=== PATIENT | female | born 1955 | race Two or more races ===

== ENCOUNTER 2021-08-01 15:29 | Emergency (ER) | payer OTHER ==
[~2021-08-01] VITALS: Ht 152.4 cm; Wt 53.0 kg
[2021-08-01] MEDS ORDERED: ALEN10TA5 PO (15:55)
[2021-08-01] MEDS ORDERED: [UNRECOGNIZED DRUG - OTHER] (15:55)
[2021-08-01] MEDS ORDERED: ZETI10TA16 PO (15:55)
[2021-08-01] MEDS ORDERED: ATOR40TA75 PO ×2 (15:55→18:38)
[2021-08-01] MEDS ORDERED: VITA200048 PO (15:55)
[2021-08-01 16:15] LABS: BASO % 0.6 % (0.0-1.0); EOS # 0.1 10^3/uL (0.0-0.5); EOS % 1.8 % (0.0-3.0); HEMATOCRIT 44.4 % (36.0-47.0); HEMOGLOBIN 14.6 g/dl (12.0-15.5); LYMPH # 1.5 10^3/uL (1.5-5.0); LYMPH % 29.7 % (24.0-44.0); MEAN CORPUSCULAR HEMOGLOBIN 30.9 pg (27.0-33.0); MEAN CORPUSCULAR HGB CONC 32.9 g/dl (32.0-36.5); MEAN CORPUSCULAR VOLUME 93.9 fl (80.0-96.0); MONO # 0.3 10^3/uL (0.0-0.8); MONO % 6.2 % (2.0-8.0); NEUTROPHILS # 3.1 10^3/uL (1.5-8.5); NEUTROPHILS % 61.5 % (36.0-66.0); PLATELET COUNT, AUTOMATED 218 10^3/uL (150-450); RED BLOOD COUNT 4.73 10^6/uL (4.00-5.40)
[2021-08-01 16:38] LABS: CK-MB VALUE MASS 2.8 NG/ML (<3.6); MB/CK RELATIVE INDEX 1.44 (< OR =4)
[2021-08-01 16:57] LABS: ALBUMIN 3.8 GM/DL (3.2-5.2); ALT/SGPT 38 U/L (12-78); BILIRUBIN,DIRECT 0.1 MG/DL (0.0-0.2); BILIRUBIN,TOTAL 0.2 MG/DL (0.2-1.0); BLOOD UREA NITROGEN 20 MG/DL (7-18); CALCIUM LEVEL 8.5 MG/DL (8.8-10.2); CARBON DIOXIDE LEVEL 28 MEQ/L (21-32); CHLORIDE LEVEL 108 MEQ/L (98-107); CREATININE FOR GFR 0.69 MG/DL (0.55-1.30); FREE T4 0.95 NG/DL (0.76-1.46); GLOMERULAR FILTRATION RATE > 60.0 (>45); GLUCOSE, FASTING 114 MG/DL (70-100); LIPASE 198 U/L (73-393); POTASSIUM SERUM 3.8 MEQ/L (3.5-5.1); SODIUM LEVEL 142 MEQ/L (136-145); TOTAL PROTEIN 7.5 GM/DL (6.4-8.2)
[2021-08-01] MEDS ORDERED: ISOVUE-370 76% 100ML VIAL As Ordered ONE (17:06)
[2021-08-01 18:04] LABS: MB/CK RELATIVE INDEX 0.91 (< OR =4)
[2021-08-01] MEDS ORDERED: OMEP40CA4 PO (18:25)
[2021-08-01] MEDS ORDERED: SUCR1TA PO (18:25)
[2021-08-01 19:06] VITALS: BP 138/73
== END 2021-08-01 19:07 | disposition home or self-care (01) ==
LOC: M ED 15:29
DX: R07.89 Other chest pain (principal); R91.8 Other nonspecific abnormal finding of lung field; R00.1 Bradycardia, unspecified; I51.7 Cardiomegaly; I70.0 Atherosclerosis of aorta; E78.5 Hyperlipidemia, unspecified; G43.909 Migraine, unspecified, not intractable, without status migrainosus; Z79.899 Other long term (current) drug therapy
CPT/HCPCS: 36415; 71045; 71275; 80048; 80076; 82550; 82553; 83690; 84439; 84443; 84484; 85025; 93005; 93041; 94760; 99285; Q9967

== ENCOUNTER 2021-11-10 13:16 | Outpatient (RCR) | payer MEDICARE, OTHER ==
[~2021-11-10 13:16] MED LIST: ALEN10TA5 PO; ATOR40TA75 PO; OMEP40CA4 PO; SUCR1TA PO; VITA200048 PO; ZETI10TA16 PO; [UNRECOGNIZED DRUG - OTHER]
== END 2021-11-17 ==
LOC: M PT 13:16
PROVIDERS: ATTEND Physician Assistant
DX: M54.31 Sciatica, right side (principal)

== ENCOUNTER 2021-12-15 13:10 | Outpatient (RCR) | payer MEDICARE, OTHER | END 2021-12-17 | LOC: M PT 13:10 | PROVIDERS: ATTEND Physician Assistant | DX: M54.31 Sciatica, right side (principal) | CPT/HCPCS: 97110; 97140; G0283 ==

== ENCOUNTER 2022-01-12 13:18 | Outpatient (RCR) | payer MEDICARE, OTHER | END 2022-01-17 | LOC: M PT 13:18 | PROVIDERS: ATTEND Physician Assistant | DX: M54.31 Sciatica, right side (principal) ==

== ENCOUNTER 2022-02-08 12:00 | Outpatient (RCR) | payer MEDICARE, OTHER | END 2022-02-17 | LOC: M PT 12:00 | PROVIDERS: ATTEND Physician Assistant | DX: M54.31 Sciatica, right side (principal) ==

== ENCOUNTER → 2022-02-17 | Outpatient (CLI) | payer MEDICARE, OTHER | LOC: M WHC 07:55 | PROVIDERS: ATTEND Physician Assistant | DX: Z12.31 Encounter for screening mammogram for malignant neoplasm of breast (principal) ==

== ENCOUNTER 2023-02-28 09:46 | Emergency (ER) | payer MEDICARE, OTHER ==
[~2023-02-28] VITALS: Ht 154.9 cm; Wt 57.2 kg
[~2023-02-28 09:46] MED LIST changes: +EZET10TA58 PO; -ZETI10TA16 PO
[2023-02-28 09:47] VITALS: TEMP 97.6; O2SAT 99
[2023-02-28] MEDS ORDERED: SUCRALFATE 1 GM TAB PO ONE (12:10)
[2023-02-28] MEDS ORDERED: ACETAMINOPHEN *IV* 1,000 MG in IV 1 EA IV ONE (12:10)
[2023-02-28] MEDS ORDERED: MAALOX 30 ML SUSP *UDC PO ONE (12:10)
[2023-02-28] MEDS ORDERED: NS 1,000 ML IV ONE (12:10)
[2023-02-28] MEDS ORDERED: HYOSCYAMINE SULFATE 0.125 MG SUBL TABLET PO ONE (12:10)
[2023-02-28] MEDS ORDERED: PANTOPRAZOLE 40MG VIAL IV ONE (12:10)
[2023-02-28 12:57] LABS: BASO % 0.6 % (0.0-1.0); EOS # 0.1 10^3/uL (0.0-0.5); EOS % 1.5 % (0.0-3.0); HEMATOCRIT 43.1 % (36.0-47.0); HEMOGLOBIN 14.1 g/dl (12.0-15.5); LYMPH # 1.2 10^3/uL (1.5-5.0); LYMPH % 25.2 % (24.0-44.0); MEAN CORPUSCULAR HEMOGLOBIN 30.9 pg (27.0-33.0); MEAN CORPUSCULAR HGB CONC 32.7 g/dl (32.0-36.5); MEAN CORPUSCULAR VOLUME 94.3 fl (80.0-96.0); MONO # 0.4 10^3/uL (0.0-0.8); MONO % 7.9 % (2.0-8.0); NEUTROPHILS # 3.1 10^3/uL (1.5-8.5); NEUTROPHILS % 64.6 % (36.0-66.0); PLATELET COUNT, AUTOMATED 218 10^3/uL (150-450); RED BLOOD COUNT 4.57 10^6/uL (4.00-5.40); WHITE BLOOD COUNT 4.8 10^3/uL (4.0-10.0)
[2023-02-28 13:12] LABS: INR 1.02; PROTHROMBIN TIME 13.1 SECONDS (12.5-14.5)
[2023-02-28 13:13] LABS: PARTIAL THROMBOPLASTIN TIME 28.7 SECONDS (24.8-34.2)
[2023-02-28 13:15] LABS: D-DIMER QUANT < 0.27 ug/mL (<0.5)
[2023-02-28 13:20] LABS: ERYTHROCYTE SEDIMENTATION RATE 21 mm/hr (0-30)
[2023-02-28 13:21] LABS: LIPASE 37 U/L (12-53)
[2023-02-28 13:24] LABS: ALBUMIN 3.8 G/DL (3.2-5.2); ALKALINE PHOSPHATASE 61 U/L (46-116); ALT/SGPT 36 U/L (7.0-40); AST/SGOT 32 U/L (<34); BILIRUBIN,DIRECT 0.3 MG/DL (<0.4); BILIRUBIN,TOTAL 0.9 MG/DL (0.3-1.2)
[2023-02-28] MEDS ORDERED: dexAMETHasone 20MG/5ML VIAL IV ONE (13:45)
[2023-02-28] MEDS ORDERED: ISOVUE-370 76% 100ML VIAL As Ordered ONE (13:51)
[2023-02-28 14:34] LABS: CPK CREATINE PHOSPHOKINASE 219 U/L (34-145); MB/CK RELATIVE INDEX 1.36 (< OR =4)
[2023-02-28 15:56] LABS: CK-MB VALUE MASS 2.4 NG/ML (<3.6)
[2023-02-28 15:59] LABS: MB/CK RELATIVE INDEX 1.18 (< OR =4)
[2023-02-28 16:16] VITALS: BP 130/69
[2023-02-28] MEDS ORDERED: CARA1TAB6 PO (16:25)
[2023-02-28] MEDS ORDERED: OMEP20TA17 PO (16:25)
[2023-02-28 21:52] LABS: C REACTIVE PROTEIN QUANTITATIV < 0.40 MG/DL (<1.0)
== END 2023-02-28 16:35 | disposition home or self-care (01) ==
LOC: M ED 09:46
DX: R07.9 Chest pain, unspecified (principal); R10.13 Epigastric pain; R51.9 Headache, unspecified; I25.2 Old myocardial infarction; E78.5 Hyperlipidemia, unspecified; Z79.02 Long term (current) use of antithrombotics/antiplatelets; Z79.810 Long term (current) use of selective estrogen receptor modulators (SERMs); Z79.899 Other long term (current) drug therapy
CPT/HCPCS: 70450; 70496; 70498; 71045; 80047; 80076; 82550; 82553; 83690; 84484; 85025; 85379; 85610; 85652; 85730; 86140; 93005; 93041; 94760; 96374; 96375; 99285; C9113; J0131; J1100; Q9967

== ENCOUNTER → 2023-03-02 | Outpatient (CLI) | payer MEDICARE, OTHER ==
[~2023-03-02] MED LIST changes: +CARA1TAB6 PO; +OMEP20TA17 PO
== END ==
LOC: M WHC 03-01 12:58
PROVIDERS: ATTEND Nurse Practitioner Adult Health
DX: Z12.31 Encounter for screening mammogram for malignant neoplasm of breast (principal); M81.0 Age-related osteoporosis without current pathological fracture; M85.89 Other specified disorders of bone density and structure, multiple sites